=== PATIENT | male | born 1995 | race Caucasian/White ===

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

== ENCOUNTER 2017-05-23 11:25 | Emergency (ER) | payer BC ==
[~2017-05-23] VITALS: Ht 177.8 cm; Wt 127.0 kg
[~2017-05-23 11:25] MED LIST: FLUT0.15 NAE
[2017-05-23 11:30] VITALS: BP 154/85; PULSE 55; TEMP 36.4; O2SAT 98; Ht 177.8 cm; Wt 127.0 kg
[2017-05-23] MEDS ORDERED: IBUPROFEN 800 MG TAB ONE (11:44)
[2017-05-23] MEDS ORDERED: TRAMADOL HCL 50 MG TAB PO STA (12:18)
--- NOTE | 2017-05-23 12:19 | DIAGNOSTIC IMAGING REPORT ---
L SHOULDER MIN 2 VIEWS ROUTINE CLINICAL HISTORY: L sholder pain s/p fall COMPARISON STUDY: None. FINDINGS: There is a left anterior shoulder dislocation. The left clavicle is intact. There appears to be flattening of the lateral humeral head suggestive of a Hill-Sachs impaction fracture. IMPRESSION: Left anterior shoulder dislocation with a Hill-Sachs impaction fracture. Electronically signed by: George Montemayor M.D. 05/23/2017 12:18 PM Dictated Date/Time: 05/23/2017 12:17 PM
[2017-05-23] MEDS ORDERED: TRAM-10 PO (12:21)
--- NOTE | 2017-05-23 17:55 | EMERGENCY ROOM VISIT NOTE ---
History First contact with patient: 11:34 Chief Complaint: SHOULDER PAIN Stated Complaint: FELL ON ICE AND HURT SHOULDER History of Present Illness The patient is a 22 year old male who presents to the Emergency Room with complaints of left shoulder pain after slipping and falling on ice this morning. The patient reports that he has dislocated this shoulder in the past, but reports that it feels different this time. He reports worsening pain with any range of motion, and currently rates his discomfort a 9 out of 10. The patient is [id number]. He denies head injury, neck pain, back pain, rib pain, chest pain or shortness of breath. Review of Systems 10 system review was performed and was negative except for pertinent positives and negatives as indicated in history of present illness Past Medical/Surgical History Medical Problems: (1) No active medical problems Family History Unremarkable Social History Smoking Status: Never Smoker Alcohol Use: occasionally Marital Status: single Occupation Status: [employer] student Current/Historical Medications Scheduled PRN Tramadol (Ultram), 1-2 TAB PO Q4H PRN for Pain Allergies Coded Allergies: No Known Allergies (Unverified , 05/23/17) Physical Exam Vital Signs Date Time Temp Pulse Resp B/P (MAP) Pulse Ox O2 Delivery O2 Flow Rate FiO2 05/23/17 11:30 36.4 55 16 154/85 98 Room Air Physical Exam CONSTITUTIONAL: Healthy and well nourished. Alert and oriented X 3 with positive affect. Patient appears in moderate discomfort from pain. HEENT: Normocephalic, atraumatic. Pupils equal, round and reactive. NECK: Full active range of motion without discomfort. RESPIRATORY: Clear to auscultation bilaterally with no wheezing, crackles, rhonchi or stridor. CARDIOVASCULAR: Regular rate and rhythm with no murmurs, rubs or gallops. MUSCULOSKELETAL: Examination of the left shoulder does not show any obvious ecchymosis, open wounds or deformities. The patient has mild tenderness through the acromioclavicular joint. Patient has pain with any attempted internal or external rotation of the shoulder. No focal tenderness through the biceps or triceps musculature or elbow region. Distal pulses are intact. INTEGUMENTARY: No rash or other significant dermatologic conditions noted. NEUROLOGIC: Left hand and fingers are sensory intact. Medical Decision & Procedures ER Provider Diagnostic Interpretation: My interpretation of left shoulder x-rays shows an anterior dislocation with Hill-Sachs deformity. Radiologist report is as follows: L SHOULDER MIN 2 VIEWS ROUTINE CLINICAL HISTORY: L sholder pain s/p fall COMPARISON STUDY: None. FINDINGS: There is a left anterior shoulder dislocation. The left clavicle is intact. There appears to be flattening of the lateral humeral head suggestive of a Hill-Sachs impaction fracture. IMPRESSION: Left anterior shoulder dislocation with a Hill-Sachs impaction fracture. Medications Administered Medications (Trade) Dose Ordered Sig/Merry Route Start Time Stop Time Status Last Admin Dose Admin Ibuprofen (Motrin Tab) 800 mg STK-MED ONCE .ROUTE 05/23/17 11:44 05/23/17 11:45 DC 05/23/17 11:46 800 MG Tramadol HCl (Ultram Tab) 50 mg NOW STAT PO 05/23/17 12:18 05/23/17 12:20 DC 05/23/17 12:24 50 MG Procedure Left shoulder reduction was performed with the patient in a prone position on the bed, left arm hanging off of the side with humerus perpendicular to the floor, and forearm parallel to the floor. The patient was able to the press the humeral head on his own with good reduction. The patient was able to tolerate internal Rotation. An arm sling and ice pack were applied. ED Course Patient history and physical exam were performed. Nurse's notes were reviewed. Vital signs were reviewed and were normal. The patient was initially administered ibuprofen 600 mg for pain. X-rays of the left shoulder confirmed anterior dislocation with Hill-Sachs deformity. Successful reduction was performed. An ice pack and sling were applied. The patient was encouraged to follow-up with [facility] for further reevaluation and management. The patient was encouraged to alternate ibuprofen and Tylenol for pain. He was provided a prescription for Ultram if needed for breakthrough pain. The patient was happy with plan of care, voiced understanding of all discharge instructions, and rated his discomfort a 2 out of 10 at the conclusion of my exam. Medical Decision Impression Primary Impression: Dislocation of left shoulder joint Additional Impression: Hill-Sachs fracture of left humerus Departure Information Dispostion Home / Self-Care Condition FAIR Prescriptions Tramadol (Ultram) 50 Mg Tab 1-2 TAB PO Q4H Y for Pain, #20 TAB For Initial Treatment Prov: Fidel Low PA 1/14/18 Referrals Oskar Eaton MD Forms HOME CARE DOCUMENTATION FORM, IMPORTANT VISIT INFORMATION Patient Instructions My [facility] [employer] Additional Instructions Intermittently apply ice to shoulder. Wear sling for additional support and relief of pain. Avoid any heavy pushing, pulling, reaching overhead or behind your body. Ibuprofen 800 mg and/or Tylenol 1000 mg every 8 hours. You may also alternate these medications for more effective pain relief: Ibuprofen --4 HRS--> Tylenol --4 HRS--> ibuprofen --4 HRS--> Tylenol .... Ultram if needed for worse pain. Follow-up with [facility] (Dr. Eaton) for further reevaluation and management. Problem Qualifiers Primary Impression: Dislocation of left shoulder joint Encounter type: initial encounter Qualified Codes: S43.005A - Unspecified dislocation of left shoulder joint, initial encounter Additional Impression: Hill-Sachs fracture of left humerus Encounter type: initial encounter Fracture type: closed Qualified Codes: S42.292A - Other displaced fracture of upper end of left humerus, initial encounter for closed fracture
== END 2017-05-23 12:35 | disposition home or self-care (01) ==
LOC: C.EDB 11:27 → C.EDD 12:35
DX: S43.005A Unspecified dislocation of left shoulder joint, initial encounter (principal); S42.292A Other displaced fracture of upper end of left humerus, initial encounter for closed fracture; W00.9XXA Unspecified fall due to ice and snow, initial encounter; Z87.828 Personal history of other (healed) physical injury and trauma